=== PATIENT | female | born 2000 | race Caucasian/White ===

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

== ENCOUNTER 2023-09-24 07:46 | Inpatient (IN) | payer OTHER ==
[2023-09-24] MEDS: Lactated Ringers 1,000 ML IV SCH (18:14)
[2023-09-25] MEDS ORDERED: Lactated Ringers 1,000 ML IV ONE (07:38)
[2023-09-25] MEDS ORDERED: Ephedrine Sulfate 50 MG/ML IV PRN (07:38)
[2023-09-25] MEDS ORDERED: XYLOCAINE 1% HCL 20 ML MDV IJ PRN (07:39)
[2023-09-25] MEDS ORDERED: Zofran 4 MG/2 ML VIAL IV PRN (07:39)
[2023-09-25] MEDS: BENADRYL 25 MG CAPSULE PO ONE (07:51)
[2023-09-25] MEDS: Lactated Ringers 1,000 ML IV SCH (07:56)
[2023-09-25] MEDS ORDERED: PITOCIN 30 UNITS/ LR 500 ML 30 UNITS/500 ML PLAST..BAG IV SCH (08:00)
[2023-09-25] MEDS: OMNIPEN 2 GM*** 2 G in Sodium Chloride 100ML MINI-BAG PLUS 100 ML IV ONE (08:01)
[2023-09-25] MEDS: PITOCIN 30 UNITS/ LR 500 ML 30 UNITS/500 ML PLAST..BAG IV SCH (08:16)
[2023-09-25 08:38] LABS: Hematocrit 29.4 % (34.1-44.9); Hemoglobin 9.1 g/dL (11.2-15.7); Mean Cell Volume 83.3 fL (79.4-94.8); Mean Corpuscular Hemoglobin 25.8 pg (25.6-32.2); Mean Platelet Volume 11.6 fL (9.4-12.3); Platelet Count 194 x10^3/uL (182-369); Red Blood Count 3.53 x10^6/uL (3.93-5.22); Red Cell Distribution Width 13.1 % (11.7-14.4); White Blood Count 7.2 x10^3/uL (3.98-10.04)
[2023-09-25] MEDS: FENTANYL 2 MCG-BUPIV 0.125%-NS 250 ML Epidur 250 ML EPIDURAL SCH (08:46)
[2023-09-25 09:10] LABS: ABO TYPING A; Antibody Screen NEGATIVE (NEGATIVE); RH TYPING POSITIVE
[2023-09-25] MEDS: Pepcid 20 MG PO ONE (09:11)
[2023-09-25 09:21] LABS: Amphetamine,Urine NEGATIVE (NEGATIVE); Barbiturate,Urine NEGATIVE (NEGATIVE); Benzodiazepine,Urine NEGATIVE (NEGATIVE); Cocaine,Urine NEGATIVE (NEGATIVE); Methadone,Urine NEGATIVE (NEGATIVE); Opiate,Urine NEGATIVE (NEGATIVE); PCP,Urine NEGATIVE (NEGATIVE); THC,Urine NEGATIVE (NEGATIVE)
[2023-09-25] MEDS: OMNIPEN 1 GM*** 1 GM in Sodium Chloride 100ML MINI-BAG PLUS 100 ML IV SCH (11:51)
[2023-09-25] MEDS ORDERED: Sensorcaine 0.25% 10 ML ONE (13:53)
[2023-09-25] MEDS: Sensorcaine 0.25% 10 ML IJ ONE (14:33)
[2023-09-25] MEDS ORDERED: OMNIPEN 1 GM*** 1 GM in Sodium Chloride 100ML MINI-BAG PLUS 100 ML IV SCH (16:00)
[2023-09-25] MEDS ORDERED: LANSINOH 40 GM TOP PRN (16:13)
[2023-09-25] MEDS: Dermoplast Spray TP PRN (20:10)
[2023-09-25] MEDS: TUCKS TP PRN (20:10)
[2023-09-25] MEDS: MOTRIN 400 MG PO PRN (22:05)
[2023-09-25] MEDS: Docusate Sodium 100 MG PO SCH (22:05)
[2023-09-26 04:43] LABS: Absolute Neutrophil Ct (ANC) 7.11 x10^3/uL (1.56-6.13); BASOPHIL % 0.3 % (0.1-1.2); Basophil (Absolute #) 0.03 x10^3/uL (0.01-0.08); Eosinophil % 0.4 % (0.7-5.8); Eosinophil (Absolute #) 0.04 x10^3/uL (0.04-0.36); Hematocrit 28.2 % (34.1-44.9); Hemoglobin 8.9 g/dL (11.2-15.7); IMMATURE GRAN # 0.06 x10^3u/L (0.001-0.031); IMMATURE GRAN % 0.6 % (0.001-0.429); Lymphocyte (Absolute #) 2.19 x10^3/uL (1.18-3.74); Lymphocytes % 20.4 % (19.3-51.7); Mean Cell Volume 83.2 fL (79.4-94.8); Mean Corpuscular Hemoglobin 26.3 pg (25.6-32.2); Mean Corpuscular Hgb Concent. 31.6 g/dL (32.2-35.5); Mean Platelet Volume 11.6 fL (9.4-12.3); Monocyte (Absolute #) 1.31 x10^3/uL (0.24-0.86); Monocytes % 12.2 % (4.7-12.5); Neutrophil % 66.1 % (34.0-71.1); Platelet Count 184 x10^3/uL (182-369); Red Blood Count 3.39 x10^6/uL (3.93-5.22); Red Cell Distribution Width 13.2 % (11.7-14.4); White Blood Count 10.7 x10^3/uL (3.98-10.04)
--- NOTE | 2023-09-26 07:39 | PCM.NOTE ---
Date and Time: 09/26/2338 Subjective Assessment: ppd 1 sp pt resting in bed and doing well able to tolerate diet and ambulate vss afebrile abd; soft uterus; firm lochia; mild hgb; 8.9 a/p sp ppd 1 dc home tomorrow should fu office 3 wks Objective Data Vital Signs: Vital Signs - 24 hr Temp Pulse Resp BP BP BP Pulse Ox 09/26/23 02:00 98.3 F 60 18 107/56 97 09/25/23 20:00 98.5 F 77 18 117/69 100 09/25/23 18:15 97.4 F 78 16 115/68 98 09/25/23 17:45 97.8 F 66 16 112/65 99 09/25/23 17:30 97.8 F 77 18 113/62 99 09/25/23 17:15 97.4 F 68 18 108/59 98 09/25/23 17:00 97.4 F 67 18 118/62 98 09/25/23 16:45 97.4 F 68 16 90/59 99 09/25/23 16:30 97.4 F 79 16 107/53 97 09/25/23 16:15 97.4 F 90 16 108/54 96 09/25/23 16:00 97.4 F 68 16 122/84 107/53 99 09/25/23 15:45 97.4 F 91 H 16 108/59 97 09/25/23 15:30 97.4 F 77 18 114/55 100 09/25/23 15:15 97.4 F 97 H 16 114/55 96 09/25/23 15:00 97.4 F 74 16 101/67 100 09/25/23 14:45 97.8 F 74 16 104/58 100 09/25/23 14:30 97.8 F 80 16 106/53 100 09/25/23 14:25 97.8 F 60 18 119/55 100 09/25/23 14:20 97.8 F 82 16 119/55 99 09/25/23 14:15 97.8 F 94 H 16 126/58 126/58 100 09/25/23 14:00 97.8 F 75 16 120/82 100 09/25/23 13:45 97.8 F 65 16 117/80 98 09/25/23 13:30 97.8 F 75 16 123/77 98 09/25/23 13:15 97.8 F 77 16 121/78 99 09/25/23 13:00 97.8 F 73 16 109/73 99 09/25/23 12:45 97.8 F 69 16 109/73 99 09/25/23 12:30 97.8 F 67 16 124/80 99 09/25/23 12:15 97.8 F 78 16 114/75 98 09/25/23 12:06 97.8 F 68 16 119/78 98 09/25/23 12:00 97.8 F 68 16 119/78 98 09/25/23 11:45 97.8 F 66 16 112/72 98 09/25/23 11:30 97.9 F 68 16 107/67 97 09/25/23 11:15 97.9 F 68 16 119/70 98 09/25/23 11:00 97.9 F 70 18 113/75 113/75 99 09/25/23 10:45 97.9 F 76 18 115/79 100 09/25/23 10:30 97.9 F 74 16 115/77 100 09/25/23 10:15 97.9 F 75 16 109/69 100 09/25/23 10:00 97.9 F 75 16 113/70 100 09/25/23 09:45 97.9 F 76 16 109/66 100 09/25/23 09:30 97.9 F 76 16 126/77 100 09/25/23 09:15 97.9 F 70 16 129/82 100 09/25/23 09:00 97.9 F 71 16 128/85 100 09/25/23 08:45 97.9 F 77 16 117/74 100 09/25/23 08:30 97.9 F 78 16 112/72 100 09/25/23 08:15 97.9 F 78 16 112/72 100 09/25/23 08:00 97.9 F 73 16 113/73 100 09/25/23 07:53 97.9 F 71 16 125/68 100 09/25/23 07:46 97.9 F 84 18 113/73 99 Pain Assessment - Last Documented Pain Intensity [Lower] 0 Pain Intensity 2 Pain Scale Used 0-10 Pain Scale Intake and Output: Intake & Output 0709/24/23 09/25/23 09/26/23 11:59 11:59 11:59 11:59 Intake Total 1658 17673 Output Total 093 9300 Balance 3980 80665 Weight 84.368 kg Lab Results: Lab Results-Last 24 Hours 09/25/23 09/25/23 09/25/23 Range/Units 08:20 08:20 08:57 WBC 7.2 (3.98-10.04) x10^3/uL RBC 3.53 L (3.93-5.22) x10^6/uL Hgb 9.1 L (11.2-15.7) g/dL Hct 29.4 L (34.1-44.9) % MCV 83.3 (79.4-94.8) fL MCH 25.8 (25.6-32.2) pg MCHC 31.0 L (32.2-35.5) g/dL RDW 13.1 (11.7-14.4) % Plt Count 194 (182-369) x10^3/uL MPV 11.6 (9.4-12.3) fL Gran % (34.0-71.1) % Immature Gran % (Auto) (0.001-0.429) % Nucleat RBC Rel Count (0.00-0.2) % Eos # (Auto) (0.04-0.36) x10^3/uL Immature Gran # (Auto) (0.001-0.031) x10^3u/L Absolute Lymphs (auto) (1.18-3.74) x10^3/uL Absolute Monos (auto) (0.24-0.86) x10^3/uL Absolute Nucleated RBC (0.00-0.012) x10^3u/L Lymphocytes % (19.3-51.7) % Monocytes % (4.7-12.5) % Eosinophils % (0.7-5.8) % Basophils % (0.1-1.2) % Absolute Granulocytes (1.56-6.13) x10^3/uL Basophils # (0.01-0.08) x10^3/uL Urine Opiates Level NEGATIVE (NEGATIVE) Ur Methadone NEGATIVE (NEGATIVE) Urine Barbiturates NEGATIVE (NEGATIVE) Ur Phencyclidine (PCP) NEGATIVE (NEGATIVE) Urine Amphetamine NEGATIVE (NEGATIVE) U Benzodiazepine Level NEGATIVE (NEGATIVE) Urine Cocaine NEGATIVE (NEGATIVE) Urine Marijuana (THC) NEGATIVE (NEGATIVE) ABO Group A Rh Factor POSITIVE Antibody Screen NEGATIVE (NEGATIVE) 09/26/23 Range/Units 04:37 WBC 10.7 H (3.98-10.04) x10^3/uL RBC 3.39 L (3.93-5.22) x10^6/uL Hgb 8.9 L (11.2-15.7) g/dL Hct 28.2 L (34.1-44.9) % MCV 83.2 (79.4-94.8) fL MCH 26.3 (25.6-32.2) pg MCHC 31.6 L (32.2-35.5) g/dL RDW 13.2 (11.7-14.4) % Plt Count 184 (182-369) x10^3/uL MPV 11.6 (9.4-12.3) fL Gran % 66.1 (34.0-71.1) % Immature Gran % (Auto) 0.6 H (0.001-0.429) % Nucleat RBC Rel Count 0.0 (0.00-0.2) % Eos # (Auto) 0.04 (0.04-0.36) x10^3/uL Immature Gran # (Auto) 0.06 H (0.001-0.031) x10^3u/L Absolute Lymphs (auto) 2.19 (1.18-3.74) x10^3/uL Absolute Monos (auto) 1.31 H (0.24-0.86) x10^3/uL Absolute Nucleated RBC 0.00 (0.00-0.012) x10^3u/L Lymphocytes % 20.4 (19.3-51.7) % Monocytes % 12.2 (4.7-12.5) % Eosinophils % 0.4 L (0.7-5.8) % Basophils % 0.3 (0.1-1.2) % Absolute Granulocytes 7.11 H (1.56-6.13) x10^3/uL Basophils # 0.03 (0.01-0.08) x10^3/uL Urine Opiates Level (NEGATIVE) Ur Methadone (NEGATIVE) Urine Barbiturates (NEGATIVE) Ur Phencyclidine (PCP) (NEGATIVE) Urine Amphetamine (NEGATIVE) U Benzodiazepine Level (NEGATIVE) Urine Cocaine (NEGATIVE) Urine Marijuana (THC) (NEGATIVE) ABO Group Rh Factor Antibody Screen (NEGATIVE) Assessment/Plan (1) Vaginal delivery Current Visit: No Status: Acute Code(s): O80 - ENCOUNTER FOR FULL-TERM UNCOMPLICATED DELIVERY
--- NOTE | 2023-09-26 07:43 | PCM.DS ---
Discharge Summary Date of Admission: 09/25/23 07:46 Admitting Physician: VICKIE CHANDRA DO Consults: Consults on Case 09/25/23 16:41 Navigation ONCE Primary Care Provider: YOLANDA ARROYO Allergies Allergies Penicillins Allergy (Verified 09/24/23 15:03) bee venom protein (honey bee) Adverse Reaction (Verified 09/24/23 15:03) Hospital Summary - Hospital Course Hospital Course: pt admitted on september 24 at 38 2/7 wks gestation with advanced cervical dilitation. pt was seen for observation on september 23 secondary to being 5cm dilated with gbs positive and was kept overnight and on september 24 was noted having cervical change to 6cm. secondary to gbs postive and advanced diliation it was determined to augment her labor and was given epidural and subsequently delivered live baby girl without complication on september 24. during period did well and with stable hgb at 8.9 and at this time stable for discharge on september 26. pt denies complaints other than lower back discomfort secondary to epidural. all questions answered to her satisfaction and was advised to fu in office in 3 wks for care and was advised to call me for any issues that may arise upon discharge. - Vitals & Intake/Output Vital Signs: Vital Signs Temperature 98.3 F 09/26/23 02:00 Pulse Rate 60 09/26/23 02:00 Respiratory Rate 18 09/26/23 02:00 Blood Pressure 107/56 09/26/23 02:00 O2 Sat by Pulse Oximetry 97 09/26/23 02:00 Intake & Output: Intake & Output 09/23/23 09/24/23 09/25/23 09/26/23 11:59 11:59 11:59 11:59 Intake Total 4480 46836 Output Total 500 2550 Balance 3980 60609 Weight 84.368 kg - Lab Result Diagrams: 09/26/23 04:37 Lab Results-Last 24 Hrs: Lab Results-Last 24 Hours 09/25/23 09/25/23 09/25/23 Range/Units 08:20 08:20 08:57 WBC 7.2 (3.98-10.04) x10^3/uL RBC 3.53 L (3.93-5.22) x10^6/uL Hgb 9.1 L (11.2-15.7) g/dL Hct 29.4 L (34.1-44.9) % MCV 83.3 (79.4-94.8) fL MCH 25.8 (25.6-32.2) pg MCHC 31.0 L (32.2-35.5) g/dL RDW 13.1 (11.7-14.4) % Plt Count 194 (182-369) x10^3/uL MPV 11.6 (9.4-12.3) fL Gran % (34.0-71.1) % Immature Gran % (Auto) (0.001-0.429) % Nucleat RBC Rel Count (0.00-0.2) % Eos # (Auto) (0.04-0.36) x10^3/uL Immature Gran # (Auto) (0.001-0.031) x10^3u/L Absolute Lymphs (auto) (1.18-3.74) x10^3/uL Absolute Monos (auto) (0.24-0.86) x10^3/uL Absolute Nucleated RBC (0.00-0.012) x10^3u/L Lymphocytes % (19.3-51.7) % Monocytes % (4.7-12.5) % Eosinophils % (0.7-5.8) % Basophils % (0.1-1.2) % Absolute Granulocytes (1.56-6.13) x10^3/uL Basophils # (0.01-0.08) x10^3/uL Urine Opiates Level NEGATIVE (NEGATIVE) Ur Methadone NEGATIVE (NEGATIVE) Urine Barbiturates NEGATIVE (NEGATIVE) Ur Phencyclidine (PCP) NEGATIVE (NEGATIVE) Urine Amphetamine NEGATIVE (NEGATIVE) U Benzodiazepine Level NEGATIVE (NEGATIVE) Urine Cocaine NEGATIVE (NEGATIVE) Urine Marijuana (THC) NEGATIVE (NEGATIVE) ABO Group A Rh Factor POSITIVE Antibody Screen NEGATIVE (NEGATIVE) 09/26/23 Range/Units 04:37 WBC 10.7 H (3.98-10.04) x10^3/uL RBC 3.39 L (3.93-5.22) x10^6/uL Hgb 8.9 L (11.2-15.7) g/dL Hct 28.2 L (34.1-44.9) % MCV 83.2 (79.4-94.8) fL MCH 26.3 (25.6-32.2) pg MCHC 31.6 L (32.2-35.5) g/dL RDW 13.2 (11.7-14.4) % Plt Count 184 (182-369) x10^3/uL MPV 11.6 (9.4-12.3) fL Gran % 66.1 (34.0-71.1) % Immature Gran % (Auto) 0.6 H (0.001-0.429) % Nucleat RBC Rel Count 0.0 (0.00-0.2) % Eos # (Auto) 0.04 (0.04-0.36) x10^3/uL Immature Gran # (Auto) 0.06 H (0.001-0.031) x10^3u/L Absolute Lymphs (auto) 2.19 (1.18-3.74) x10^3/uL Absolute Monos (auto) 1.31 H (0.24-0.86) x10^3/uL Absolute Nucleated RBC 0.00 (0.00-0.012) x10^3u/L Lymphocytes % 20.4 (19.3-51.7) % Monocytes % 12.2 (4.7-12.5) % Eosinophils % 0.4 L (0.7-5.8) % Basophils % 0.3 (0.1-1.2) % Absolute Granulocytes 7.11 H (1.56-6.13) x10^3/uL Basophils # 0.03 (0.01-0.08) x10^3/uL Urine Opiates Level (NEGATIVE) Ur Methadone (NEGATIVE) Urine Barbiturates (NEGATIVE) Ur Phencyclidine (PCP) (NEGATIVE) Urine Amphetamine (NEGATIVE) U Benzodiazepine Level (NEGATIVE) Urine Cocaine (NEGATIVE) Urine Marijuana (THC) (NEGATIVE) ABO Group Rh Factor Antibody Screen (NEGATIVE) Final Diagnosis/Problem List - Final Discharge Diagnosis/Problem (1) Vaginal delivery Current Visit: No Status: Acute Code(s): O80 - ENCOUNTER FOR FULL-TERM UNCOMPLICATED DELIVERY - Discharge Disposition: Home, Self-Care Condition: Stable Prescriptions: No Action Pnv No.95/Ferrous Fum/Folic AC [ Caplet] 1 mg PO DAILY Levothyroxine Sodium 50 mcg PO DAILY Aspirin [Aspirin EC] 81 mg PO DAILY Follow up with: YOLANDA ARROYO [Primary Care Provider] - VICKIE CHANDRA DO [ACTIVE STAFF] - 3 weeks (should call me for any issues that may arise after discharge)
[2023-09-26] MEDS: FERREX 150 PO SCH (08:32)
[2023-09-26] MEDS: Adacel Vial IM ONE (09:26)
[2023-09-26] MEDS: NON-FORMULARY ITEM PO PRN (10:46)
[2023-09-26] MEDS ORDERED: Lactated Ringers 1,000 ML IV ONE (14:06)
[2023-09-26 16:30] LABS: RPR Non Reactive (Non Reactive)
[2023-09-27] MEDS: Tums EX 750 MG PO PRN (02:43)
--- NOTE | 2023-09-27 09:10 | PCM.DCORD ---
- Discharge Disposition: Home, Self-Care Condition: Stable Prescriptions: New Butalbit/Acetamin/Caff/Codeine [Fioricet-Cod [id number] Cap] 1 each PO Q6H PRN PRN #12 cap PRN Reason: Headache No Action Pnv No.95/Ferrous Fum/Folic AC [ Caplet] 1 mg PO DAILY Levothyroxine Sodium 50 mcg PO DAILY Aspirin [Aspirin EC] 81 mg PO DAILY Additional Instructions: sent rx for fioricet at request of anesthesia due to spinal headache s/p blood patch Follow up with: YOLANDA ARROYO [Primary Care Provider] - VICKIE CHANDRA DO [ACTIVE STAFF] - 3 weeks (should call me for any issues that may arise after discharge)
[2023-09-27] MEDS: TYLENOL EXTRA STRENGTH 500 MG PO PRN (10:17)
[2023-09-27 11:52] VITALS: BP 116/74; PULSE 63; RESP 14; TEMP 97.8; O2SAT 99
== END 2023-09-27 16:40 | disposition home or self-care (01) | DRG 807 ==
LOC: OB 07:46 → OB.NST 14:40 → EDSTATUS 19:02 → OB 19:02 → OBSVTOIN 09-25 07:46
PROVIDERS: ADMIT Obstetrics & Gynecology; ATTEND Obstetrics & Gynecology
PROC: 10E0XZZ Delivery of Products of Conception, External Approach (ICD-10-PCS; principal; 2023-09-25)
DX: O98.82 Other maternal infectious and parasitic diseases complicating childbirth (principal); Z37.0 Single live birth; Z3A.38 38 weeks gestation of pregnancy; B95.1 Streptococcus, group B, as the cause of diseases classified elsewhere
CPT/HCPCS: 36415; 59025; 59409; 59426; 80307; 81002; 85025; 85027; 86592; 86850; 86900; 86901; 87086; 90715; 96372; 99213; G0378; J0290; J2590; A9270-GY